=== PATIENT | female | born 1990 | race American Indian/Alaskan Native ===

== ENCOUNTER 2021-10-09 09:50 | Inpatient (IN) | payer MEDICAID ==
[2021-10-09 07:08] LABS: Bacteria,Urine 2+ /HPF (Negative); Bilirubin,Urine NEG (Negative); Blood,Urine NEG (Negative); Color,Urine Yellow (Yellow); Mucus,Urine 2+ /HPF; Urobilinogen,Urine < 2.0 mg/dL (<2.0)
--- NOTE | 2021-10-09 08:48 | Anesthesia Day of Surgery ---
Anesthesia Day of Surgery - Day of Surgery Patient Examined: Yes Patient H&P Reviewed: Yes Patient is NPO: Yes
--- NOTE | 2021-10-09 08:51 | Anesthesia Consultation ---
Anesthesia Consult and Med Hx Date of service: 10/09/21 - Airway Anesthetic Teeth Evaluation: Good ROM Head & Neck: Adequate Mental/Hyoid Distance: Adequate Mallampati Class: Class II Intubation Access Assessment: Probably Good - Pulmonary Exam CTA: Yes - Cardiac Exam Cardiac Exam: RRR - Pre-Operative Health Status ASA Pre-Surgery Classification: ASA2 Proposed Anesthetic Plan: Spinal - Pulmonary Hx Smoking: No (former) Hx Asthma: No Hx Respiratory Symptoms: No COPD: No Hx Pneumonia: No - Cardiovascular System Hx Hypertension: No Hx Coronary Artery Disease: No Hx Heart Attack/AMI: No Hx Angina: No Hx Peripheral Vascular Disease: No - Central Nervous System Hx Neuromuscular Disorder: No Hx Seizures: No CVA: No Hx Psychiatric Problems: No - Gastrointestinal Hx Gastroesophageal Reflux Disease: Yes (mild) - Endocrine Hx Renal Disease: No Hx End Stage Renal Disease: No Hx Cirrhosis: No Hx Hypothyroidism: No Hx Hyperthyroidism: No - Hematic Hx Anemia: No Hx Sickle Cell Disease: No - Other Systems Hx Alcohol Use: No Hx Cancer: No
[2021-10-09 08:59] LABS: Basophils % (Auto) 0.5 % (0.0-1.8); Eosinophils % (Auto) 0.5 % (0.0-4.3); Hematocrit 35.8 % (30.3-42.9); Hemoglobin 11.6 gm/dl (10.1-14.3); Lymphocytes # (Auto) 1.6 K/mm3 (1.2-5.4); Lymphocytes % (Auto) 22.6 % (13.4-35.0); Mean Corpuscular HGB Conc 32 % (30-34); Mean Corpuscular Volume 89 fl (79-97); Monocytes # (Auto) 0.9 K/mm3 (0.0-0.8); Monocytes % (Auto) 12.4 % (0.0-7.3); Platelet Count 252 K/mm3 (140-440); Red Blood Count 4.04 M/mm3 (3.65-5.03); Red Cell Distribution Width 14.2 % (13.2-15.2)
--- NOTE | 2021-10-09 09:47 | History and Physical Report ---
History of Present Illness Date of examination: 10/09/21 Date of admission: October 09, 2021 Chief complaint: Uterine contractions History of present illness: 31-year-old -0-1-2 at 37+2 weeks who presents with regular uterine contractions. The patient denies leakage of fluid. The patient has a history of 2 previous deliveries. During her observation the patient demonstrated cervical change with increase uterine contractility. The decision was made to proceed with a repeat delivery. Past History Past Medical History: no pertinent history Past Surgical History: section Social history: - Obstetrical History Expected Date of Delivery: 10/28/21 Actual Gestation: 37 Week(s) 2 Day(s) : 4 Para: 2 Hx # Term Pregnancies: 2 Number of Pregnancies: 0 Spontaneous Abortions: 1 Induced : 0 Number of Living Children: 2 Medications and Allergies Allergies Allergy/AdvReac Type Severity Reaction Status Date / Time sulfamethoxazole AdvReac Swelling Verified 10/09/21 07:09 [From Bactrim] trimethoprim [From Bactrim] AdvReac Swelling Verified 10/09/21 07:09 Home Medications Medication Instructions Recorded Confirmed Last Taken Type No Known Home Medications [No 10/09/21 10/09/21 Unknown History Reported Home Medications] Active Meds: Active Medications Citric Acid/Sodium Citrate (Bicitra Oral Liqd 30ml) 30 ml PO PREOP NERY Stop: 10/09/21 17:00 Last Admin: 10/09/21 09:06 Dose: 30 ml Famotidine (Famotidine 20 Mg/2 Ml Inj) 20 mg IV PREOP NERY Stop: 10/09/21 17:00 Last Admin: 10/09/21 09:06 Dose: 20 mg Lactated Ringer's (Lactated Ringers) 1,000 mls @ 2,250 mls/hr IV PREOP NERY Stop: 10/10/21 07:27 Oxytocin/Sodium Chloride (Pitocin/Ns 30 Unit/500ml) 30 units in 500 mls @ 0 mls/hr IV TITR NERY; Protocol Cefazolin Sodium (Ancef/Sterile Water 2 Gm/20 Ml) 2 gm in 20 mls @ 80 mls/hr IV PREOP NR; Protocol Stop: 10/09/21 17:00 Metoclopramide HCl (Metoclopramide 10 Mg/2 Ml Inj) 10 mg IV ONCE@0830 NERY Stop: 10/09/21 17:00 Last Admin: 10/09/21 09:06 Dose: 10 mg Ondansetron HCl (Ondansetron 4 Mg/2 Ml Inj) 4 mg IV ONCE@30 [facility] Stop: 10/09/21 10:30 Last Admin: 10/09/21 08:30 Dose: 4 mg Review of Systems All systems: negative Genitourinary: pelvic pain, contractions, no leakage of fluid - Vital Signs Vital signs: Vital Signs Temp Resp 98.1 F 18 10/09/21 06:56 10/09/21 06:56 Temp Pulse Resp BP Pulse Ox 98.1 F 76 18 138/90 100 10/09/21 06:56 10/09/21 09:44 10/09/21 06:56 10/09/21 09:14 10/09/21 09:44 - Physical Exam Breasts: Positive: deferred Cardiovascular: Regular rate Lungs: Positive: Clear to auscultation Abdomen: Positive: normal appearance - Obstetrical Cervical Dilatation: 2 Results Result Diagrams: 10/09/21 06:37 Abnormal lab results 10/09/21 Range/Units 06:37 [place] % (Auto) 12.4 H (0.0-7.3) % [place] # (Auto) 0.9 H (0.0-0.8) K/mm3 All other labs normal. Assessment and Plan - Patient Problems (1) Active labor at term Current Visit: Yes Status: Acute Plan to address problem: Will proceed with a repeat delivery. Patient has declined tubal ligation. (2) Previous delivery affecting Current Visit: Yes Status: Acute
[~2021-10-09 09:50] MED LIST: BICITRA ORAL LIQD 30ML PO SCH; FAMOTIDINE 20 MG/2 ML INJ IV SCH; LACTATED RINGERS 1,000 ML IV SCH; LACTATED RINGERS 1,000 ML ONE; METOCLOPRAMIDE 10 MG/2 ML INJ IV SCH; ONDANSETRON 4 MG/2 ML INJ IV SCH; OXYTOCIN DRIP 30 UNITS/500 ML BAG IV SCH; TERBUTALINE 1 MG/1 ML INJ SUB-Q ONE; ceFAZolin/Water 2 GM/20 ML 2 GM/20 ML SYRINGE IV NR
--- NOTE | 2021-10-09 09:54 | Procedure Note ---
OB Delivery Note - Delivery Date of Delivery: 10/09/21 Surgeon: SALAS CHAO Estimated blood loss: other (QBL 760 mL) - Section Preop diagnosis: repeat Postop diagnosis: same section procedure: section, repeat low transverse Disposition: PACU Complications: none - A at 1 minute: 8 at 5 minutes: 9 Gender: Male (Weight 6 pounds 2 ounces)
--- NOTE | 2021-10-09 09:55 | Operative Report ---
Operative Report Operative Report: Date of surgery: Oct 09, 2021 Preoperative diagnosis: at 37+2 weeks; previous delivery; a ctive labor at term Postoperative diagnosis: Same as above; pelvic adhesive disease Procedure: Repeat low transverse delivery; lysis of adhesions Surgeon: Geovanna Toledo M.D. Anesthesia: Regional Estimated blood loss: QbL 768 mL Urine output: 300 mL IV fluids: 1800 mL Findings: Liveborn male with Apgars of 8 and 9 weight 6 pounds 2 ounces Indications: 31-year-old -0-1-2 at 37+2 weeks who presents with evidence of active labor. The patient demonstrated cervical change during observation and has a history of 2 prior deliveries and is not a candidate for a trial of labor. Procedure: The patient was taken to the operating room and given regional anesthesia without complication. She was prepped and draped in a normal sterile fashion. A Pfannenstiel skin incision was made down to layer the fascia which was nicked in the midline extended laterally with the Bovie cautery. The superior aspect of the rectus fascia was grasped with [place] clamps x2 and the rectus muscles off sharply. This was done in inferior fashion as well. The rectus muscle midline and peritoneum entered bluntly. The uterus was noted to be adherent to the rectus muscle. Secondary to the multiple adhesions an Levy retractor could not be placed. Sharp dissection had to be used in order to visualize the lower uterine segment. A bladder blade was placed. The vesicouterine peritoneum was then entered sharply with Metzenbaum scissors. A bladder flap was created digitally. A low transverse uterine incision was then made and extended digitally. There was clear fluid upon entry into the uterine cavity. The head was delivered through the incision with fundal pressure. The cord was clamped and cut x2 and was passed off to pediatrics. The placenta was then manually extracted. The uterus could not be exteriorized secondary to the adhesive disease. A laparotomy sponge was used to clear the uterine cavity of clots and debris. The uterus was left in situ. The uterine incision was then closed in a running locked fashion with 0 Vicryl additional imbricating stitch was applied for 2 layer closure. The gutters were then copiously irrigated. There was bleeding noted from the serosa of the uterus. A [id number]-[id number] stitch was placed along with Surgicel. The peritoneum was then reapproximated with 3-0 Vicryl incorporating the rectus muscle. The fascia was then closed with 0 Vicryl in a running fashion. The skin was then reapproximated with 3-0 Monocryl on a Mando needle subcuticular fashion. Steri-Strips to place across the incision and a Crede procedures performed at the end of the surgery. A pressure dressing was applied to the incision. The surgery productive of a liveborn male infant with Apgars of 8 and 9 weight 6 pounds 2 ounces. The patient was taken to the recovery room in stable condition. All sponge laps and needle counts correct x2.
[2021-10-09] MEDS ORDERED: ONDANSETRON 4 MG/2 ML INJ ONE (10:11)
[2021-10-09] MEDS ORDERED: WITCH HAZEL/ GLYCERIN PAD TP PRN (11:00)
[2021-10-09] MEDS ORDERED: IBUPROFEN 600 MG TAB PO PRN (11:00)
[2021-10-09] MEDS ORDERED: MAGNESIUM HYDROXIDE (MOM) ORAL LIQD UDC PO PRN (11:00)
[2021-10-09] MEDS ORDERED: ACETAMINOPHEN 325 MG TAB PO PRN (11:00)
[2021-10-09] MEDS ORDERED: D5W/LACTATED RINGERS 1,000 ML IV SCH (11:00)
[2021-10-09] MEDS ORDERED: KETOROLAC 30 MG/1 ML INJ IV PRN (11:00)
[2021-10-09] MEDS ORDERED: NALOXONE 0.4 MG/1 ML INJ IV PRN (11:00)
[2021-10-09] MEDS ORDERED: OXYTOCIN DRIP 30 UNITS/500 ML BAG IV SCH (11:00)
[2021-10-09] MEDS ORDERED: LANOLIN/ZINC/DIMETHICONE (LANSINOH) 7 GM TP PRN (11:00)
[2021-10-09] MEDS ORDERED: oxyCODONE /ACETAMINOPHEN 5-325MG TAB PO PRN (11:00)
[2021-10-09] MEDS ORDERED: dexAMETHasone 20 MG/5 ML VIAL ONE (11:10)
[2021-10-09] MEDS ORDERED: LACTATED RINGERS 1,000 ML ONE ×2 (11:10→11:16)
[2021-10-09] MEDS ORDERED: BUPIVACAINE/PF (0.25%) 2.5 MG/ML 30 ML VIAL INFILTRATI ONE (11:10)
[2021-10-09] MEDS ORDERED: PHENYLEPHRINE/NS 1,000 MCG/10 ML SYRINGE (OR USE) IV ONE (11:10)
--- NOTE | 2021-10-09 13:06 | Progress Note ---
Spinal Anesthesia Block - Spinal Anesthesia Block Start Time: 10:15 Stop Time: 10:20 Performed by:: ALIRIO CRUZ Procedure: Patient IDed, H&P reviewed, all questions and concerns were answered, and consent was signed. Timeout was performed at bedside. Patient in sitting position. Sterile prep and drape was performed. [3] ml of 1% lidocaine skin wheal at L[3]- L [4]. Needle introducer advanced. 25 gauge spinal needle advanced. Clear, free flowing CSF. negative blood, negative paresthesia. Spinal dose given. All needles removed. Patient tolerated procedure.
--- NOTE | 2021-10-09 13:06 | Progress Note ---
Regional Anesthesia Block - Regional Anesthesia Block Start Time: 11:20 Stop Time: : Performed By:: ALIRIO CRUZ Procedure: Patient consented for TAP block for post surgical pain management. Patient identified, monitors placed, and time out performed. TAP identified bilaterally via ultrasound. Skin prepped bilaterally with [chlorhexidine] and [22g stimuplex] needle advanced to the TAP. [Marcaine 0.25% 35ml] injected under ultrasound guidance on the [left] side. [Marcaine 0.25% 35ml] injected under ultrasound guidance on the [right] side. Negative aspiration every 5mL, No change in heart rate or rhythm. Patient tolerated the procedure well. No apparent complications seen.
[2021-10-09] MEDS: MORPHINE 4 MG/1 ML INJ IV PRN ×2 (17:32→23:30)
[2021-10-09 23:33] LABS: Hematocrit 32.1 % (30.3-42.9); Hemoglobin 10.4 gm/dl (10.1-14.3)
--- NOTE | 2021-10-10 08:18 | Progress Note ---
Assessment and Plan A: POD#1 s/p repeat at term Asymptomatic anemia P: routine postoperative advances Subjective - Subjective Date of service: 10/10/21 Principal diagnosis: s/p repeat section Interval history: Patient doing well. She has passed minimal flatus. She is voiding without difficulty. Patient reports: appetite normal, voiding normally, pain well controlled, flatus, ambulating normally, no bowel movement Maurice: doing well Objective - Vital Signs Latest vital signs: Vital Signs Temp Pulse Resp BP BP Pulse Ox Pulse Ox 10/10/21 05:50 18 10/10/21 04:30 98.2 F 74 16 111/75 10/10/21 02:31 18 10/10/21 00:00 98.8 F 77 18 104/78 10/09/21 23:30 18 10/09/21 20:21 97 10/09/21 20:01 98.2 F 70 18 121/77 99 10/09/21 17:32 16 10/09/21 16:10 98.9 F 67 20 131/77 99 10/09/21 13:00 97 10/09/21 12:30 98.9 F 79 19 117/67 98 10/09/21 12:15 75 13 113/71 99 10/09/21 12:00 75 13 115/73 100 10/09/21 11:45 74 22 111/65 99 10/09/21 11:40 79 12 113/66 100 10/09/21 11:35 98.6 F 69 13 78/55 99 10/09/21 10:04 78 100 10/09/21 09:59 84 100 10/09/21 09:54 79 100 10/09/21 09:49 84 100 10/09/21 09:44 76 100 10/09/21 09:39 82 99 10/09/21 09:34 75 99 10/09/21 09:29 79 100 10/09/21 09:24 80 99 10/09/21 09:19 79 96 10/09/21 09:14 84 138/90 100 10/09/21 09:09 85 98 10/09/21 09:04 79 100 10/09/21 08:59 85 100 10/09/21 08:54 87 100 10/09/21 08:49 86 100 10/09/21 08:44 91 H 100 10/09/21 08:39 81 99 10/09/21 08:34 85 99 10/09/21 08:29 92 H 99 10/09/21 08:24 91 H 100 10/09/21 08:19 87 100 Intake and Output 10/09/21 10/10/21 10/10/21 22:59 06:59 14:59 Intake Total 940 Output Total 400 1400 Balance 540 -1400 Intake: Oral 940 Output: Urine 400 1400 Indwelling Catheter 400 Void 1400 Other: Total, Intake Amount 200 Total, Output Amount 400 600 # Voids Void 1 - Exam Breasts: Present: deferred Abdomen: Present: soft, distention (moderate) Uterus: Present: fundal height at umbilicus Extremities: Present: normal Incision: Present: dressed - Labs Labs: Abnormal lab results 10/09/21 Range/Units 06:37 [place] % (Auto) 12.4 H (0.0-7.3) % [place] # (Auto) 0.9 H (0.0-0.8) K/mm3
[2021-10-10] MEDS ORDERED: IBUPROFEN 600 MG TAB PO SCH (09:00)
[2021-10-10] MEDS: IBUPROFEN 800 MG TAB PO SCH ×3 (10:35→20:45)
[2021-10-10] MEDS: LACTULOSE 20 GM/30 ML ORAL LIQD PO SCH ×2 (10:35→22:00)
--- NOTE | 2021-10-10 14:42 | Post Anesthesia Evaluation ---
- Post Anesthesia Evaluation Patient Participated: Yes Airway Patent: Yes Stable Respiratory Function: Yes Nausea/Vomiting: No Temp > 96.8F: Yes Pain Manageable: Yes Adequeate Hydration: Yes Anesthesia Complications: No Block Receding Appropriately: Yes Patient on Ventilator: No
[2021-10-10] MEDS: SIMETHICONE 80 MG CHEW TAB PO PRN (22:28)
[2021-10-11] MEDS: IBUPROFEN 800 MG TAB PO SCH ×2 (02:52→10:26)
[2021-10-11] MEDS: SIMETHICONE 80 MG CHEW TAB PO PRN ×2 (04:33→10:25)
--- NOTE | 2021-10-11 09:10 | Progress Note ---
Assessment and Plan A: POD#2 s/p repeat C/S at term P: Continue with routine care with discharge anticipated at 48hrs from delivery. Subjective - Subjective Date of service: 10/11/21 Principal diagnosis: s/p repeat section Interval history: POD#2 s/p repeat C/s at term. Patient is feeling well and has no complaints. She reports no increase in lochia, adequate pain control, +flatus and BM. Patient reports: appetite normal, voiding normally, pain well controlled, flatus, bowel movement, ambulating normally : doing well Objective - Vital Signs Latest vital signs: Vital Signs Temp Pulse Resp BP BP Pulse Ox Pulse Ox 10/11/21 09:01 98.5 F 81 18 121/85 100 10/11/21 02:59 98 10/11/21 02:52 99 10/11/21 00:00 98.4 F 77 16 104/78 10/10/21 19:30 98 10/10/21 15:52 99.2 F 82 18 120/88 99 10/10/21 13:05 98.9 F 78 18 105/69 100 Intake and Output 10/10/21 10/11/21 10/11/21 23:59 07:59 15:59 Intake Total 800 300 240 Balance 800 300 240 Intake: Oral 440 240 Intake, Free Water 360 300 Other: Total, Intake Amount 240 240 # Voids Void 1 1 1 # Bowel Movements 1
--- NOTE | 2021-10-11 09:13 | Discharge Summary ---
Providers - Providers Date of Admission: 10/09/21 10:16 Date of discharge: 10/11/21 Attending physician: SALAS CHAO Primary care physician: SALAS CHAO Hospitalization Reason for admission: section Delivery: Procedure: repeat low transverse Incision: normal, dry, intact Other procedures: none complications: none Discharge diagnosis: IUP at term delivered [place] baby: male Hospital course: Hospital course was uncomplicated. Condition at discharge: Good Disposition: 01 HOME / SELF CARE / HOMELESS Plan - Discharge Medications Prescriptions: Ibuprofen [Motrin] 800 mg PO Q8HR PRN #30 tablet PRN Reason: Pain, Moderate (4-6) oxyCODONE /ACETAMINOPHEN [Percocet 5/325] 1 tab PO Q6HR PRN #30 tablet PRN Reason: Pain - Provider Discharge Summary Activity: routine, no sex for 6 weeks, no heavy lifting 4 weeks, no strenuous exercise Diet: routine Instructions: routine Additional instructions: [] Smoking cessation referral if applicable(refer to patient education folder for contact #) [] Refer to [facility]'s [facility] Booklet Call your doctor immediately for: * Fever > 100.5 * Heavy vaginal bleeding ( >1 pad per hour) * Severe persistent headache * Shortness of breath * Reddened, hot, painful area to leg or breast * Drainage or odor from incision. * Keep incision clean and dry at all times and follow doctor's instructions regarding bathing/showering Return to clinic for incision check and schedule your 's circumcision. - Follow up plan Follow up: SAMM RAINEY NP [Advanced Practice Nurse] - 14 Days
[2021-10-11] MEDS: LACTULOSE 20 GM/30 ML ORAL LIQD PO SCH (10:52)
[2021-10-11 13:06] VITALS: BP 138/88
== END 2021-10-11 13:31 | disposition home or self-care (01) | DRG 766 ==
LOC: APU 09:50 → TRG 09:50 → APU 10:12 → OB 12:47
PROVIDERS: ADMIT Obstetrics & Gynecology; ATTEND Obstetrics & Gynecology
PROC: 3E0T3BZ Introduction of Anesthetic Agent into Peripheral Nerves and Plexi, Percutaneous Approach (ICD-10-PCS; principal; 2021-10-09)
PROC: 10D00Z1 Extraction of Products of Conception, Low, Open Approach (ICD-10-PCS; 2021-10-09)
DX: O99.892 Other specified diseases and conditions complicating childbirth (principal); O34.211 Maternal care for low transverse scar from previous cesarean delivery; N73.6 Female pelvic peritoneal adhesions (postinfective); Z37.0 Single live birth; Z3A.37 37 weeks gestation of pregnancy; Z20.822 Contact with and (suspected) exposure to COVID-19; O99.62 Diseases of the digestive system complicating childbirth; K21.9 Gastro-esophageal reflux disease without esophagitis; O90.81 Anemia of the puerperium; Z88.8 Allergy status to other drugs, medicaments and biological substances
CPT/HCPCS: 36415; 59025; 81001; 85014; 85018; 85025; 86592; 86850; 86900; 86901; 96360; 96372; G0378; J3490; J7060; J7121; J1100; J1885; J2270; J2370; J2405; J2765; J3105; J7120; U0003